=== PATIENT | female | born 1985 | race Hispanic/Latino ===

== ENCOUNTER 2018-05-13 15:28 | Inpatient (IN) | payer OTHER ==
[2018-05-13 15:28] VITALS: BMI 21.6
[2018-05-13] MEDS ORDERED: Morphine 4 MG/ML VIAL IV STA (17:05)
--- NOTE | 2018-05-13 17:08 | ED PDOC ---
Arrival/HPI - General Historian: Patient - History of Present Illness Narrative History of Present Illness (Text): 05/13/18 18:18 Pt is a 32 y/o female with hx of Brain Ca (in remission), Seizure D/O, Depression (6+) episodes of vomiting (NBNB).ssion, Anxiety, presenting to ED w ith complaints that she woke up this morning and had a headache associated with m She has also been experiencing a "loss for words". States that this type of episode has occured on multiple occasions in the past but usually lasts <1lhr. She cannot elaborate on whether it has been worked up. She denies any recent head trauma, recent illness (cough/fevers), sick contacts, motor defects, transient LOC, recent travel. She also denies auditory/visual hallucinations or ingestion of toxic substances/drugs. Pt's history is limited to her difficulty in formulating thoughts verbally. ROS: + tingling in right hand PMD: None Psychiatrist: Cannot remember name PMHX: Brain Ca (Astrocytoma Grade III, s/p resection, chemo and radiation 6 years ago, currently in remission), Seizure d/o, Depression, Anxiety Denies drug allergies Social: Works as a Psychiatrist Attending in [place] Next of Kin: , out of the country Father: Jose Jenkins [phone] 05/13/18 18:25 05/13/18 18:27 AMS, Expressive Aphasia, Code Stroke 05/13/18 18:41 05/13/18 19:26 <Cherelle Pineda - Last Filed: 05/13/18 19:30> <Kaya Davidson - Last Filed: 05/15/18 11:59> - General Chief Complaint: GI Problem Time Seen by Provider: 05/13/18 16:33 Past Medical History - Provider Review Nursing Documentation Reviewed: Yes - Travel History Have you recently traveled outside [place] w/in the past 3 mons?: No - Reproductive Currently : Unknown - Pulmonary Other/Comment: beth's disease - Endocrine/Metabolic Hx Hypothyroidism: Yes - Psychiatric Hx Substance Use: No - Surgical History Other/Comment: Left sided brain surgery- sec to astrocytoma - Anesthesia Hx Anesthesia: Yes Hx Anesthesia Reactions: No Hx Malignant Hyperthermia: No <Cherelle Pineda - Last Filed: 05/13/18 19:30> Family/Social History Family/Social History: No Known Family HX Smoking Status: Never Smoked Hx Alcohol Use: Yes Hx Substance Use: No <Cherelle Pineda - Last Filed: 05/13/18 19:30> Allergies/Home Meds <Nguyen Pinedam - Last Filed: 05/13/18 19:30> <Kaya Davidson - Last Filed: 05/15/18 11:59> Allergies/Adverse Reactions: Allergies Sulfa (Sulfonamide Antibiotics) Allergy (Verified 05/13/18 15:39) RASH Home Medications: Home Meds Medication Instructions Recorded Confirmed RX: Levothyroxine [Synthroid] 88 mcg PO DAILY 02/18/15 05/13/18 Dextroamphetamine/Amphetamine 20 mg PO BID 05/13/18 05/13/18 [Adderall Xr 10 mg Capsule] Escitalopram [Lexapro] 20 mg PO DAILY 05/13/18 05/13/18 Lamotrigine [Lamictal] 200 mg PO Q12 05/13/18 05/14/18 RX: Aspirin [Ecotrin] 81 mg PO MWF 05/13/18 05/13/18 Physical Exam - Physical Exam Physical Exam Limitations: Other (expressive aphasia) Vital Signs Temp Pulse Resp BP Pulse Ox 05/13/18 15:39 98 F 84 20 120/74 99 Finger Stick Blood Glucose: 107 - Systems Exam Head: Present: Atraumatic, Normocephalic Pupils: Present: PERRL. No: Sluggish, Pinpoint Extroacular Muscles: Present: EOMI. No: Gaze Palsy Mouth: Present: Moist Mucous Membranes Neck: Present: Normal Range of Motion Respiratory/Chest: Present: Clear to Auscultation. No: Respiratory Distress, Wheezes, Rales Cardiovascular: Present: Regular Rate and Rhythm Abdomen: Present: Normal Bowel Sounds. No: Tenderness, Distention Upper Extremity: Present: Normal Inspection Lower Extremity: Present: Normal Inspection Neurological: Present: GCS=15, CN II-XII Intact, Motor Func Grossly Intact, Normal Sensory Function, Normal Cerebellar Funct, Gait Normal. No: Speech Norm al (pauses intermittently in search for words) Skin: Present: Normal Color Psychiatric: Present: Alert, Oriented x 3, Normal Insight. No: Normal Conc entration <Cherelle Pineda - Last Filed: 05/13/18 19:30> Vital Signs Temp Pulse Resp BP Pulse Ox 05/13/18 17:30 98 F 75 14 112/73 99 05/13/18 15:39 98 F 84 20 120/74 99 <StuartKaya F - Last Filed: 05/15/18 11:59> Medical Decision Making - RAD Interpretation Radiology Orders: 05/13/18 17:04 HEAD W/O (CODE STROKE) [CT] Stat CHEST PORTABLE [RAD] Stat - Medication Orders Current Medication Orders: Sodium Chloride (Sodium Chloride 0.9%) 1,000 mls @ 100 mls/hr IV .Q10H APOLLO Morphine Sulfate (Morphine) 2 mg IV STAT STA Stop: 05/13/18 17:06 Ondansetron HCl (Zofran Inj) 4 mg IV STAT STA Stop: 05/13/18 17:06 <Cherelle Pineda - Last Filed: 05/13/18 19:30> - Critical Care Critical Care Minutes: 45 minutes - Lab Interpretations Lab Results: PT 12.8 Seconds (9.8-13.1) 05/13/18 17:05 INR 1.1 05/13/18 17:05 APTT 30.9 Seconds (25.6-37.1) 05/13/18 17:05 Troponin I < 0.0120 ng/mL (0.00-0.120) 05/13/18 17:05 Total Bilirubin 0.9 mg/dl (0.2-1.3) 05/13/18 17:05 AST 31 U/L (14-36) 05/13/18 17:05 ALT 33 U/L (9-52) 05/13/18 17:05 Alkaline Phosphatase 65 U/L (38-126) 05/13/18 17:05 Total Protein 7.7 G/DL (6.3-8.2) 05/13/18 17:05 Albumin 4.6 g/dL (3.5-5.0) 05/13/18 17:05 Globulin 3.1 gm/dL (2.2-3.9) 05/13/18 17:05 Albumin/Globulin Ratio 1.5 (1.0-2.1) 05/13/18 17:05 - RAD Interpretation Radiology Orders: 05/13/18 17:04 HEAD W/O (CODE STROKE) [CT] Stat CHEST PORTABLE [RAD] Stat - Medication Orders Current Medication Orders: Sodium Chloride (Sodium Chloride 0.9%) 1,000 mls @ 100 mls/hr IV .Q10H APOLLO Last Admin: 05/13/18 17:39 Dose: 100 mls/hr eMAR Start Stop Document 05/13/18 17:39 [email or web address] (Rec: 05/13/18 17:45 [id number]) Intravenous Solution Start Date 05/13/18 Start Time 17:44 Discontinued Medications Morphine Sulfate (Morphine) 2 mg IV STAT STA Stop: 05/13/18 17:06 Last Admin: 05/13/18 17:45 Dose: Not Given Non-Admin Reason: Patient Refused Ondansetron HCl (Zofran Inj) 4 mg IV STAT STA Stop: 05/13/18 17:06 Last Admin: 05/13/18 17:45 Dose: 4 mg eMAR Start Stop Document 05/13/18 17:45 [email or web address] (Rec: 05/13/18 17:45 [id number]) Intravenous Solution Start Date 05/13/18 Start Time 17:45 End Date 05/13/18 End time 17:47 Total Infusion Time 2 <Kaya Davidson F - Last Filed: 05/15/18 11:59> Disposition/Present on Arrival - Present on Arrival Any Indicators Present on Arrival: No History of DVT/PE: No - Disposition Have Diagnosis and Disposition been Completed?: Yes Disposition Time: 19:00 Patient Plan: ICU <Cherelle Pineda - Last Filed: 05/13/18 19:30> <Kaya Davidson - Last Filed: 05/15/18 11:59> - Disposition Diagnosis: Expressive aphasia Disposition: HOSPITALIZED Condition: STABLE Medical Decision Making Medical Decision Makin:[address] Sanon, recommends Keppra 1 g IV, MRI with contrast and admission to ICU. <Kaya Davidson - Last Filed: 05/15/18 11:59> NIHSS Stroke Scale - Date/Time Evaluation Performed When Was NIHSS Performed: Code Stroke - How Severe is the Stroke Level of Consciousness: 0=Alert LOC to Questions: 0=Both comments correct LOC to commands: 0=Obeys both correctly Best Gaze: 0=Normal Visual: 0=No visual loss Facial: 0=Normal Motor Arm - Left: 0=No drift Motor Arm - Right: 0=No drift Motor Leg - Left: 0=No drift Motor Leg - Right: 0=No drift Limb Ataxia: 0=Absent Sensory: 0=Normal Best Language: 1=Mild to moderate aphasia Dysarthia: 0=Normal articulation Extinction & Inattention (Neglect): 0=Normal, no object Score: 1 <Kaya Davidson F - Last Filed: 05/15/18 11:59>
[2018-05-13 17:29] LABS: INR 1.1; PROTHROMBIN TIME 12.8 Seconds (9.8-13.1)
--- NOTE | 2018-05-13 17:30 | CT ---
Date of service: 05/13/2018 PROCEDURE: CT HEAD WITHOUT CONTRAST. HISTORY: code stroke. Dizziness COMPARISON: None available. TECHNIQUE: Axial computed tomography images were obtained through the head/brain without intravenous contrast. Supplemental Coronal and Sagittal projections created and reviewed. Radiation dose: Total exam DLP = 952.01 mGy-cm. This CT exam was performed using one or more of the following dose reduction techniques: Automated exposure control, adjustment of the mA and/or kV according to patient size, and/or use of iterative reconstruction technique. FINDINGS: HEMORRHAGE: Focal area of encephalomalacia/cystic region adjacent to the craniotomy findings high left frontal region. The area of interest measures 1.7 x 2.3 cm. Mean Hounsfield unit values 8.9 approximate CSF values. BRAIN: No mass effect or edema. No atrophy or chronic microvascular ischemic changes. VENTRICLES: Unremarkable. No hydrocephalus. CALVARIUM: Post craniotomy changes high left frontal region. PARANASAL SINUSES: Unremarkable as visualized. No significant inflammatory changes. MASTOID AIR CELLS: Unremarkable as visualized. No inflammatory changes. OTHER FINDINGS: None. IMPRESSION: Postoperative changes right frontal region. This consists encephalomalacia region/cystic focus adjacent to left frontal craniotomy site. Code stroke protocol: Study completed 17:09 Radiologist notified 17:16 Results conveyed verbally at 17:23 Interpretation finalized and available for review 17:25.
[2018-05-13 17:32] LABS: PARTIAL THROMBOPLASTIN TIME 30.9 Seconds (25.6-37.1)
[2018-05-13 17:37] LABS: ALB/GLOB RATIO 1.5 (1.0-2.1); ALBUMIN 4.6 g/dL (3.5-5.0); ALT/SGPT 33 U/L (9-52); AST/SGOT 31 U/L (14-36); BLOOD UREA NITROGEN 22 mg/dl (7-17); CALCIUM 9.9 mg/dL (8.4-10.2); GFR NON-AFRICAN AMERICAN > 60; HDL CHOLESTEROL 67 MG/DL (30-70)
[2018-05-13] MEDS: Sodium Chloride 0.9% 1,000 ML IV SCH (17:39)
[2018-05-13 17:44] LABS: BASO % 0.2 % (0.0-2.0); HEMOGLOBIN 12.4 g/dL (12.0-16.0); LYMPH # 0.6 K/uL (1.0-4.3); LYMPH % 6.7 % (20.0-40.0); MEAN CELL VOLUME 86.8 fl (81.0-99.0); MEAN CORPUSCULAR HEMOGLOBIN 28.1 pg (27.0-31.0); MEAN CORPUSCULAR HGB CONC 32.4 g/dL (33.0-37.0); MEAN PLATELET VOLUME 9.8 fl (7.2-11.7); MONO # 0.3 K/uL (0.0-0.8); MONO % 3.8 % (0.0-10.0); NEUT % 89.3 % (50.0-75.0); PLATELET COUNT 256 K/uL (130-400); RBC 4.41 Mil/uL (3.80-5.20); RED CELL DISTRIBUTION WIDTH 12.9 % (11.5-14.5)
[2018-05-13 17:47] LABS: LDL CHOLESTEROL 95 mg/dL (0-129)
[2018-05-13] MEDS ORDERED: levETIRAcetam 1,000 MG in Sodium Chloride 0.9% 100 ML IVPB STA (17:53)
[2018-05-13] MEDS ORDERED: Gadodiamide 287 MG/ML VIAL (15ML) IV ONE (18:07)
--- NOTE | 2018-05-13 18:26 | RAD ---
Date of service: 05/13/2018 HISTORY: Code Stroke COMPARISON: No prior. FINDINGS: LUNGS: No active pulmonary disease. PLEURA: No significant pleural effusion identified, no pneumothorax apparent. CARDIOVASCULAR: No atherosclerotic calcification present Normal. OSSEOUS STRUCTURES: No significant abnormalities. VISUALIZED UPPER ABDOMEN: Normal. OTHER FINDINGS: None. IMPRESSION: No active disease.
--- NOTE | 2018-05-13 18:35 | CP.CCUPN ---
CCU Subjective - Physician Review Subjective (Free Text): 05/13/18 The Patient was seen and examined at the bedside in the Emergency department, Medical records reviewed, and management issues were discussed and formulated with the house staff. Patient is a 82 years old female with past medical history of brain cancer (currently in remission), seizure disorder, depression and anxiety Who presented to emergency room with complaint of that she woke up in the morning with Bilateral, frontal, severe headache and trouble finding the words Patient is stated that this type of symptom has occurred in the past but usually lasts less than 1 hour + tingling in right hand She denies any fever, chills, new focal weakness, sensory deficit, loss of conscious or seizure disorders In the emergency room code stroke was called Underwent head CT scan which was negative for acute bleed mass edema or acute stroke she is currently being evaluated in the emergency room and is scheduled to have an MRI of the brain Upon my evaluation in the emergency room she is alert awake oriented x3 no focal neurological deficits on exam but she has expressive aphasia difficulty findings words and formulating thought verbally Neurology on-call was consulted She received Morphine Sulfate (Morphine) 2 mg IV STAT and Ondansetron HCl (Zofran Inj) 4 mg IV STAT STA Patient is hemodynamically stable and getting admitted to the intensive care unit for frequent neurological check PMHX: As above plus Brain Ca (Astrocytoma Grade III, s/p resection, chemo and radiation 6 years ago, currently in remission) CCU Objective - Vital Signs / Intake & Output Vital Signs (Last 4 hours): Vital Signs Temp Pulse Resp BP Pulse Ox 05/13/18 17:30 98 F 75 14 112/73 99 05/13/18 15:39 98 F 84 20 120/74 99 Intake and Output (Last 8hrs): Intake & Output 05/13/18 05/13/18 05/13/18 06:59 14:59 22:59 Weight 135 lb - Physical Exam Head: Positive for: Atraumatic, Normocephalic Pupils: Positive for: PERRL Extroacular Muscles: Positive for: EOMI Conjunctiva: Positive for: Normal Ears: Positive for: Normal Mouth: Positive for: Moist Mucous Membranes Pharnyx: Positive for: Normal. Negative for: ERYTHEMA Nose (Internal): Positive for: Normal Inspection Neck: Positive for: Normal Range of Motion, Trachea Midline. Negative for: Meningeal Signs, MIDLINE TENDERNESS, Paraspinal Tenderness, JVD, Lymphadenopathy, Bruit, Other Respiratory/Chest: Positive for: Clear to Auscultation, Good Air Exchange. N egative for: Respiratory Distress, Accessory Muscle Use, Rales, Retracting, Rhonchi Cardiovascular: Positive for: Regular Rate and Rhythm, Normal S1, S2, Peripheal Pulses Present. Negative for: Murmurs, Tachycardic, Bradycardic Abdomen: Positive for: Normal Bowel Sounds. Negative for: Tenderness, Distention, Peritoneal Signs Back: Positive for: Normal Inspection. Negative for: CVA Tenderness, Midline Tenderness Psychiatric: Positive for: Alert, Oriented x 3 - Medications Active Medications: Active Medications Generic Name Dose Route Start Last Admin Trade Name Freq PRN Reason Stop Dose Admin Sodium Chloride 1,000 mls @ 100 mls/hr 05/13/18 17:15 05/13/18 17:39 Sodium Chloride 0.9% IV 100 mls/hr .Q10H APOLLO Administration - Patient Studies Lab Studies: Lab Studies 05/13/18 05/13/18 05/13/18 Range/Units 17:05 17:05 17:05 WBC (4.8-10.8) K/uL RBC (3.80-5.20) Mil/uL Hgb (12.0-16.0) g/dL Hct (34.0-47.0) % MCV (81.0-99.0) fl MCH (27.0-31.0) pg MCHC (33.0-37.0) g/dL RDW (11.5-14.5) % Plt Count (130-400) K/uL MPV (7.2-11.7) fl Neut % (Auto) (50.0-75.0) % Lymph % (Auto) (20.0-40.0) % [place] % (Auto) (0.0-10.0) % Eos % (Auto) (0.0-4.0) % Baso % (Auto) (0.0-2.0) % Neut # (Auto) (1.8-7.0) K/uL Lymph # (Auto) (1.0-4.3) K/uL [place] # (Auto) (0.0-0.8) K/uL Eos # (Auto) (0.0-0.7) K/uL Baso # (Auto) (0.0-0.2) K/uL PT 12.8 (9.8-13.1) Seconds INR 1.1 APTT 30.9 (25.6-37.1) Seconds Sodium (132-148) mmol/l Potassium (3.6-5.0) MMOL/L Chloride (98-107) mmol/L Carbon Dioxide (22-30) mmol/L Anion Gap (10-20) BUN (7-17) mg/dl Creatinine (0.7-1.2) mg/dl Est GFR ( Amer) Est GFR (Non-Af Amer) POC Glucose (mg/dL) (65-110) mg/dL Random Glucose (65-105) mg/dL Calcium (8.4-10.2) mg/dL Total Bilirubin (0.2-1.3) mg/dl AST (14-36) U/L ALT (9-52) U/L Alkaline Phosphatase (38-126) U/L Troponin I (0.00-0.120) ng/mL Total Protein (6.3-8.2) G/DL Albumin (3.5-5.0) g/dL Globulin (2.2-3.9) gm/dL Albumin/Globulin Ratio (1.0-2.1) Triglycerides (0-149) mg/DL Cholesterol (0-199) mg/dL LDL Cholesterol Direct (0-129) mg/dL HDL Cholesterol (30-70) MG/DL Beta HCG, Quant < 2.39 mIU/mL Blood Type A POSITIVE Antibody Screen Negative BBK History Checked No verified bt 05/13/18 05/13/18 05/13/18 Range/Units 17:05 17:05 17:04 WBC 9.0 (4.8-10.8) K/uL RBC 4.41 (3.80-5.20) Mil/uL Hgb 12.4 (12.0-16.0) g/dL Hct 38.2 (34.0-47.0) % MCV 86.8 (81.0-99.0) fl MCH 28.1 (27.0-31.0) pg MCHC 32.4 L (33.0-37.0) g/dL RDW 12.9 (11.5-14.5) % Plt Count 256 (130-400) K/uL MPV 9.8 (7.2-11.7) fl Neut % (Auto) 89.3 H (50.0-75.0) % Lymph % (Auto) 6.7 L (20.0-40.0) % [place] % (Auto) 3.8 (0.0-10.0) % Eos % (Auto) 0.0 (0.0-4.0) % Baso % (Auto) 0.2 (0.0-2.0) % Neut # (Auto) 8.0 H (1.8-7.0) K/uL Lymph # (Auto) 0.6 L (1.0-4.3) K/uL [place] # (Auto) 0.3 (0.0-0.8) K/uL Eos # (Auto) 0.0 (0.0-0.7) K/uL Baso # (Auto) 0.0 (0.0-0.2) K/uL PT (9.8-13.1) Seconds INR APTT (25.6-37.1) Seconds Sodium 138 (132-148) mmol/l Potassium 3.9 (3.6-5.0) MMOL/L Chloride 98 (98-107) mmol/L Carbon Dioxide 26 (22-30) mmol/L Anion Gap 18 (10-20) BUN 22 H (7-17) mg/dl Creatinine 0.5 L (0.7-1.2) mg/dl Est GFR ( Amer) > 60 Est GFR (Non-Af Amer) > 60 POC Glucose (mg/dL) 107 (65-110) mg/dL Random Glucose 102 (65-105) mg/dL Calcium 9.9 (8.4-10.2) mg/dL Total Bilirubin 0.9 (0.2-1.3) mg/dl AST 31 (14-36) U/L ALT 33 (9-52) U/L Alkaline Phosphatase 65 (38-126) U/L Troponin I < 0.0120 (0.00-0.120) ng/mL Total Protein 7.7 (6.3-8.2) G/DL Albumin 4.6 (3.5-5.0) g/dL Globulin 3.1 (2.2-3.9) gm/dL Albumin/Globulin Ratio 1.5 (1.0-2.1) Triglycerides 35 (0-149) mg/DL Cholesterol 192 (0-199) mg/dL LDL Cholesterol Direct 95 (0-129) mg/dL HDL Cholesterol 67 (30-70) MG/DL Beta HCG, Quant mIU/mL Blood Type Antibody Screen BBK History Checked Laboratory Results - last 24 hr 05/13/18 05/13/18 05/13/18 17:04 17:05 17:05 WBC 9.0 RBC 4.41 Hgb 12.4 Hct 38.2 MCV 86.8 MCH 28.1 MCHC 32.4 L RDW 12.9 Plt Count 256 MPV 9.8 Neut % (Auto) 89.3 H Lymph % (Auto) 6.7 L [place] % (Auto) 3.8 Eos % (Auto) 0.0 Baso % (Auto) 0.2 Neut # (Auto) 8.0 H Lymph # (Auto) 0.6 L [place] # (Auto) 0.3 Eos # (Auto) 0.0 Baso # (Auto) 0.0 PT INR APTT Sodium 138 Potassium 3.9 Chloride 98 Carbon Dioxide 26 Anion Gap 18 BUN 22 H Creatinine 0.5 L Est GFR ( Amer) > 60 Est GFR (Non-Af Amer) > 60 POC Glucose (mg/dL) 107 Random Glucose 102 Calcium 9.9 Total Bilirubin 0.9 AST 31 ALT 33 Alkaline Phosphatase 65 Troponin I < 0.0120 Total Protein 7.7 Albumin 4.6 Globulin 3.1 Albumin/Globulin Ratio 1.5 Triglycerides 35 Cholesterol 192 LDL Cholesterol Direct 95 HDL Cholesterol 67 Beta HCG, Quant Blood Type Antibody Screen BBK History Checked 05/13/18 05/13/18 05/13/18 17:05 17:05 17:05 WBC RBC Hgb Hct MCV MCH MCHC RDW Plt Count MPV Neut % (Auto) Lymph % (Auto) [place] % (Auto) Eos % (Auto) Baso % (Auto) Neut # (Auto) Lymph # (Auto) [place] # (Auto) Eos # (Auto) Baso # (Auto) PT 12.8 INR 1.1 APTT 30.9 Sodium Potassium Chloride Carbon Dioxide Anion Gap BUN Creatinine Est GFR ( Amer) Est GFR (Non-Af Amer) POC Glucose (mg/dL) Random Glucose Calcium Total Bilirubin AST ALT Alkaline Phosphatase Troponin I Total Protein Albumin Globulin Albumin/Globulin Ratio Triglycerides Cholesterol LDL Cholesterol Direct HDL Cholesterol Beta HCG, Quant < 2.39 Blood Type A POSITIVE Antibody Screen Negative BBK History Checked No verified bt Radiology Impressions: Radiology Impressions Chest X-Ray 05/13/18 17:04 IMPRESSION: No active disease. Head CT 05/13/18 17:04 IMPRESSION: Postoperative changes right frontal region. This consists encephalomalacia region/cystic focus adjacent to left frontal craniotomy site. Code stroke protocol: Study completed 17:09 Radiologist notified 17:16 Results conveyed verbally at 17:23 Interpretation finalized and available for review 17:25. EKG/Cardiology Studies: Cardiology / EKG Studies 05/13/18 17:04 ELECTROCARDIOGRAM Stat Comment: Mode Of Transportation: Reason For Exam: Code stroke Fingerstick Blood Sugar Results: 107 Review of Systems - Review of Systems Systems not reviewed;Unavailable: Acuity of Condition - Constitutional Constitutional: absent: Fever, Chills, Sweats - Cardiovascular Cardiovascular: absent: Acrocyanosis, Chest Pain, Chest Pain at Rest, Chest Pain with Activity, Claudication, Diaphoresis, Dyspnea - Neurological Neurological: Abnormal Speech, Confusion, Dizziness, Numbness, Lack of Coordination, Paresthesias. absent: Abnormal Movements, Behavioral Changes, Convulsions, Disequilibrium, Focal Weakness Critical Care Progress Note - Extremities/Vascular Does the Patient have a Central Venous Catheter?: No Does the Patient need a Central Venous Catheter?: No Does the Patient have a Chau Catheter?: No Does the Patient need a Chau Catheter?: No Assessment/Plan (1) Acute ischemic stroke Current Visit: Yes Status: Acute Priority: High (2) Expressive aphasia Current Visit: Yes Status: Ruled-out Priority: High - Assessment and Plan (Free Text) Assessment: Admit the patient to the intensive care unit for frequent neuro check neurology consulted in the emergency room possible need for permissive hypertension for now NPO Speech and swallow evaluation PT OT evaluation patient might require MICHELLE on discharge MRI of the brain acute stroke sequences ekg monitor to assess for A. fib though low suspicion for embolus at this time Check urine toxicology, hemoglobin A1c, lipid panel Start statins Consider EEG
[2018-05-13 19:45] LABS: ANISOCYTOSIS SLIGHT; BANDS 2 % (0-2); LYMPHOCYTE 8 % (20-50); MONOCYTE 5 % (0-10); NEUTROPHIL 85 % (42-75); PLATELET ESTIMATE NORMAL (NORMAL); TOTAL CELLS COUNTED 100
[2018-05-13 19:46] LABS: HYPOCHROMIC SLIGHT
[2018-05-14 00:14] LABS: SQUAMOUS EPITHIAL 5 /hpf (0-5); URINE BACTERIA RARE (<OCC); URINE BILIRUBIN NEGATIVE (NEGATIVE); URINE BLOOD MODERATE (NEGATIVE); URINE CLARITY CLOUDY (Clear); URINE COLOR YELLOW (YELLOW); URINE GLUCOSE (UA) NEG (NEGATIVE); URINE LEUKOCYTE ESTERASE NEG Leu/uL (Negative); URINE PROTEIN 30 mg/dL (NEGATIVE); URINE UROBILINOGEN 0.2-1.0 mg/dL (0.2-1.0)
[2018-05-14 00:18] LABS: HCG,QUALITATIVE URINE NEGATIVE (NEGATIVE)
[2018-05-14 00:23] LABS: BARBITURATES, UR NEGATIVE (NEGATIVE); BENZODIAZEPINES, UR NEGATIVE (NEGATIVE); OPIATES, UR NEGATIVE (NEGATIVE); PHENCYCLIDINE, UR NEGATIVE (NEGATIVE)
[2018-05-14] MEDS: Sodium Chloride 0.9% 1,000 ML IV SCH (03:30)
[2018-05-14 05:20] LABS: HEMOGLOBIN 11.3 g/dL (12.0-16.0); MEAN CELL VOLUME 86.9 fl (81.0-99.0); MEAN CORPUSCULAR HEMOGLOBIN 28.4 pg (27.0-31.0); MEAN CORPUSCULAR HGB CONC 32.6 g/dL (33.0-37.0); RBC 3.97 Mil/uL (3.80-5.20); RED CELL DISTRIBUTION WIDTH 12.8 % (11.5-14.5)
[2018-05-14 05:32] LABS: BLOOD UREA NITROGEN 13 mg/dl (7-17); CALCIUM 8.9 mg/dL (8.4-10.2); GFR NON-AFRICAN AMERICAN > 60
[2018-05-14] MEDS ORDERED: Levothyroxine 88 MCG TAB PO SCH (06:30)
[2018-05-14] MEDS ORDERED: AMPHETAMINE PO SCH (09:00)
[2018-05-14] MEDS ORDERED: DEXTROAMPHETAMINE PO SCH (09:00)
--- NOTE | 2018-05-14 09:05 | CARD ---
APPROVED REPORT Date of service: 05/13/2018 EKG Measurement Heart [id number] <Conclusion> Normal sinus rhythm with sinus arrhythmia Normal ECG
--- NOTE | 2018-05-14 12:25 | MRI ---
Date of service: 05/13/2018 PROCEDURE: MRI BRAIN WITH AND WITHOUT CONTRAST HISTORY: Expressive aphasia COMPARISON: Noncontrast head CT 05/13/2018. TECHNIQUE: Multiplanar, multisequence MR images of the brain were obtained with and without intravenous contrast enhancement (Omniscan 13 cc). FINDINGS: HEMORRHAGE: None DWI: Trace hemosiderin identified at the medial left temporal lobe at the posterior extent of the sylvian fissure of uncertain origin. This may be posttraumatic or postoperative although cavernous angioma is a possibility here. BRAIN PARENCHYMA: Postoperative changes are identified at the left frontal vertex status post left parietal craniotomy with smooth peripheral margins associated and no enhancement. Limited white-matter changes are seen related to the periphery of this postoperative site as well as in the periventricular white matter, left greater than right bilateral centrum semiovale white-matter is also somewhat abnormal though minimally. No mass effect. Posterior fossa contents appear unremarkable as imaged. A small dilated perivascular space is seen at the posterior margins of the left basal ganglia lateral to left thalamus. ENHANCEMENT: No abnormal intracranial enhancement. VENTRICLES: Unremarkable. No hydrocephalus. CRANIUM: Unremarkable. ORBITS: Grossly unremarkable. PARANASAL SINUSES/MASTOIDS: Clear VASCULAR SYSTEM: Skull base flow voids intact. OTHER FINDINGS: None . IMPRESSION: Postoperative changes in the left frontal vertex status post left parietal craniotomy. No abnormal intracranial enhancement appreciated. Nonspecific white-matter signal changes seen in the periventricular white matter bilateral centrum semiovale regions. Etiology is nonspecific. This could reflect post radiation change but clinical correlation is advised.
[2018-05-14] MEDS ORDERED: Sodium Chloride 0.9% 50 ML IV ONE (12:42)
[2018-05-14] MEDS ORDERED: Iodixanol 320 MG/ML 100 ML BOTTLE IV ONE (12:42)
--- NOTE | 2018-05-14 14:10 | CT ---
Date of service: 05/14/2018 PROCEDURE: CT Angiography of the Brain and Neck. HISTORY: angioma COMPARISON: None available. TECHNIQUE: CT angiography of the head and neck was performed following intravenous contrast administration. Coronal and sagittal maximum intensity projection reformatted images were generated. Contrast Dose: Visipaque 320, 100 cc Radiation dose: Total exam DLP = 414.53 mGy-cm. This CT exam was performed using one or more of the following dose reduction techniques: Automated exposure control, adjustment of the mA and/or kV according to patient size, and/or use of iterative reconstruction technique. FINDINGS: INTERNAL CEREBRAL ARTERIES: Unremarkable. The skull base, petrous, cavernous and supraclinoid segments are bilaterally widely patent. ANTERIOR CEREBRAL ARTERIES: Unremarkable. A1 and A2 segments are widely patent. Smaller distal branches unremarkable, as visualized. MIDDLE CEREBRAL ARTERIES: Unremarkable. M1 and M2 segments are widely patent. Perisylvian branches grossly symmetric. POSTERIOR CIRCULATION: Basilar Artery: Unremarkable. Distal Vertebral Arteries: Codominant vertebrobasilar circulation. Posterior Cerebral Arteries: Unremarkable. Posterior Inferior Cerebellar Arteries: Unremarkable. NECK CTA: Common Carotid arteries: The bilateral common carotid appear widely patent from their origins to their bifurcations with no significant stenosis appreciated. No evidence to suggest common carotid artery dissection. Internal Carotid arteries: No significant stenosis is appreciated throughout the cervical internal carotid artery segments bilaterally and there is no evidence of dissection either. External Carotid arteries: Appear unremarkable bilaterally. Vertebral arteries: The bilateral vertebral arteries appear normal in caliber from their origins to their distal cervical segments. No significant stenosis or definite pattern of dissection. ANEURYSM/ VASCULAR MALFORMATIONS: None. OTHER FINDINGS: None. IMPRESSION: Unremarkable CT Angiography of the Brain and Neck. No intracranial aneurysm or arteriovascular malformation appreciable. No, although enhancement is usually seen within cavernous angiomata, occult AVMs such as cavernous angiomas may not significantly enhance. Postop changes are identified left parietal bone and left frontal lobe.
[2018-05-14 17:28] VITALS: PULSE 98; RESP 14; TEMP 97.5; O2SAT 98
--- NOTE | 2018-05-14 17:42 | CP.PCM.HP ---
Past Patient History - Past Medical History & Family History Past Medical History?: Yes - Past Social History Smoking Status: Never Smoked - CARDIAC Hx Cardiac Disorders: No - PULMONARY Hx Respiratory Disorders: No - NEUROLOGICAL Hx Neurological Disorder: Yes - HEENT Hx HEENT Problems: No - RENAL Hx Chronic Kidney Disease: No - ENDOCRINE/METABOLIC Hx Endocrine Disorders: Yes Hx Hypothyroidism: Yes Other/Comment: Sunshine disorder - HEMATOLOGICAL/ONCOLOGICAL Hx Cancer: Yes (brain) - INTEGUMENTARY Hx Dermatological Problems: No - MUSCULOSKELETAL/RHEUMATOLOGICAL Hx Musculoskeletal Disorders: No Hx Falls: No - GASTROINTESTINAL Hx Gastrointestinal Disorders: Yes Hx Vomiting: Yes - GENITOURINARY/GYNECOLOGICAL Hx Genitourinary Disorders: No - PSYCHIATRIC Hx Psychophysiologic Disorder: Yes - SURGICAL HISTORY Hx Surgeries: Yes Hx Tonsillectomy: Yes Other/Comment: Left sided brain surgery- sec to astrocytoma - ANESTHESIA Hx Anesthesia: Yes Hx Anesthesia Reactions: No Hx Malignant Hyperthermia: No Meds Allergies/Adverse Reactions: Allergies Allergy/AdvReac Type Severity Reaction Status Date / Time Sulfa (Sulfonamide Allergy RASH Verified 05/13/18 15:39 Antibiotics) Results - Vital Signs Recent Vital Signs: Last Vital Signs Temp 97.5 F L 05/14/18 14:00 Pulse 98 H 05/14/18 14:00 Resp 14 05/14/18 14:00 BP 93/59 L 05/14/18 12:00 Pulse Ox 98 05/14/18 14:00 - Labs Result Diagrams: 05/14/18 04:25 05/14/18 04:25 Labs: Laboratory Results - last 24 hr 05/13/18 05/13/18 05/13/18 17:05 17:05 17:05 WBC 9.0 RBC 4.41 Hgb 12.4 Hct 38.2 MCV 86.8 MCH 28.1 MCHC 32.4 L RDW 12.9 Plt Count 256 MPV 9.8 Neut % (Auto) 89.3 H Lymph % (Auto) 6.7 L [place] % (Auto) 3.8 Eos % (Auto) 0.0 Baso % (Auto) 0.2 Neut # (Auto) 8.0 H Lymph # (Auto) 0.6 L [place] # (Auto) 0.3 Eos # (Auto) 0.0 Baso # (Auto) 0.0 Neutrophils % (Manual) 85 H Band Neutrophils % 2 Lymphocytes % (Manual) 8 L Monocytes % (Manual) 5 Platelet Estimate Normal Hypochromasia (manual) Slight Anisocytosis (manual) Slight Sodium Potassium Chloride Carbon Dioxide Anion Gap BUN Creatinine Est GFR ( Amer) Est GFR (Non-Af Amer) Random Glucose Hemoglobin A1c 5.8 Calcium Troponin I < 0.0120 LDL Cholesterol Direct 95 Beta HCG, Quant Urine Color Urine Clarity Urine pH Ur Specific [place] Urine Protein Urine Glucose (UA) Urine Ketones Urine Blood Urine Nitrate Urine Bilirubin Urine Urobilinogen Ur Leukocyte Esterase Urine RBC (Auto) Urine Microscopic WBC Ur Squamous Epith Cells Urine Bacteria Urine HCG, Qual Urine Opiates Screen Urine Methadone Screen Ur Barbiturates Screen Ur Phencyclidine Scrn Ur Amphetamines Screen U Benzodiazepines Scrn U Oth Cocaine Metabols U Cannabinoids Screen Blood Type Antibody Screen 05/13/18 05/13/18 05/13/18 17:05 17:05 23:30 WBC RBC Hgb Hct MCV MCH MCHC RDW Plt Count MPV Neut % (Auto) Lymph % (Auto) [place] % (Auto) Eos % (Auto) Baso % (Auto) Neut # (Auto) Lymph # (Auto) [place] # (Auto) Eos # (Auto) Baso # (Auto) Neutrophils % (Manual) Band Neutrophils % Lymphocytes % (Manual) Monocytes % (Manual) Platelet Estimate Hypochromasia (manual) Anisocytosis (manual) Sodium Potassium Chloride Carbon Dioxide Anion Gap BUN Creatinine Est GFR ( Amer) Est GFR (Non-Af Amer) Random Glucose Hemoglobin A1c Calcium Troponin I LDL Cholesterol Direct Beta HCG, Quant < 2.39 Urine Color Yellow Urine Clarity Cloudy Urine pH 8.0 Ur Specific [place] 1.023 Urine Protein 30 Urine Glucose (UA) Neg Urine Ketones 80 Urine Blood Moderate Urine Nitrate Negative Urine Bilirubin Negative Urine Urobilinogen 0.2-1.0 Ur Leukocyte Esterase Neg Urine RBC (Auto) 29 H Urine Microscopic WBC 1 Ur Squamous Epith Cells 5 Urine Bacteria Rare Urine HCG, Qual Negative Urine Opiates Screen Urine Methadone Screen Ur Barbiturates Screen Ur Phencyclidine Scrn Ur Amphetamines Screen U Benzodiazepines Scrn U Oth Cocaine Metabols U Cannabinoids Screen Blood Type A POSITIVE Antibody Screen Negative 05/13/18 05/14/18 05/14/18 23:30 04:25 04:25 WBC 10.0 RBC 3.97 Hgb 11.3 L Hct 34.5 MCV 86.9 MCH 28.4 MCHC 32.6 L RDW 12.8 Plt Count 233 MPV Neut % (Auto) Lymph % (Auto) [place] % (Auto) Eos % (Auto) Baso % (Auto) Neut # (Auto) Lymph # (Auto) [place] # (Auto) Eos # (Auto) Baso # (Auto) Neutrophils % (Manual) Band Neutrophils % Lymphocytes % (Manual) Monocytes % (Manual) Platelet Estimate Hypochromasia (manual) Anisocytosis (manual) Sodium 136 Potassium 3.7 Chloride 100 Carbon Dioxide 24 Anion Gap 16 BUN 13 Creatinine 0.5 L Est GFR ( Amer) > 60 Est GFR (Non-Af Amer) > 60 Random Glucose 88 Hemoglobin A1c Calcium 8.9 Troponin I LDL Cholesterol Direct Beta HCG, Quant Urine Color Urine Clarity Urine pH Ur Specific [place] Urine Protein Urine Glucose (UA) Urine Ketones Urine Blood Urine Nitrate Urine Bilirubin Urine Urobilinogen Ur Leukocyte Esterase Urine RBC (Auto) Urine Microscopic WBC Ur Squamous Epith Cells Urine Bacteria Urine HCG, Qual Urine Opiates Screen Negative Urine Methadone Screen Negative Ur Barbiturates Screen Negative Ur Phencyclidine Scrn Negative Ur Amphetamines Screen Negative U Benzodiazepines Scrn Negative U Oth Cocaine Metabols Negative U Cannabinoids Screen Positive H Blood Type Antibody Screen
[2018-05-14 17:49] VITALS: BP 104/54
[2018-05-14] MEDS ORDERED: levETIRAcetam 500 MG in Sodium Chloride 0.9% 100 ML IVPB SCH (21:00)
--- NOTE | 2018-05-15 01:19 | PN ---
DATE: 05/14/2018 CRITICAL CARE PROGRESS NOTE LOCATION: The patient is in ICU, bed 421. SUBJECTIVE: The patient is seen and evaluated at the bedside. Past medical, surgical and social history reviewed. A 32-year-old female with a history of brain CA, astrocytoma grade 3, status post resection, chemotherapy and radiation treatment 6 years ago, currently in remission with seizure disorder, on Keppra, and anxiety and depression. The patient was admitted through emergency room with complaining of headache associated with loss of voice/dysarthria, admitted, noted to have a tingling of her right hand. Initial head CT showed postoperative changes of right frontal region with encephalomalacia and regional cystic focus adjacent to left frontal craniotomy site. MRI of the brain, postoperative changes in the left frontal vertex, status post left parietal craniotomy, no abnormal intracranial enhancement, no specific white matter signal changes in the periventricular white matter, bilateral centrum semiovale regions. The patient's head CT angiogram also shows no acute abnormality. PHYSICAL EXAMINATION: GENERAL: This morning alert, awake, follows commands appropriate. Able to comprehend and express but slight dysarthria persists. No motor weakness. Able to swallow without aspiration, seen by Speech and Swallow. Recommended to upgrade food as tolerated. VITAL SIGNS: Temperature 97.3, heart rate 69 and regular, blood pressure 93/59, mean arterial pressure 70, respiratory rate 15, oxygen saturation 99% on room air. Intake 900, output not documented. Weight 138 pounds. HEAD, EYES, EARS, NOSE AND THROAT: Pupils reactive. Conjunctivae pink. Sclerae are white. NECK: Supple. Trachea central. Mild right facial droop. CHEST: Bilateral breath sounds, clear to auscultation. HEART: Rhythm regular. S1, S2 normal. ABDOMEN: Bowel sounds present. Soft. Liver and spleen not palpable. Bladder not distended. EXTREMITIES: No clubbing, cyanosis or edema. NEUROLOGIC: Oriented to name, place and time. No motor or sensory impairment. MEDICATIONS: Include levothyroxine 88 mcg daily, Lamictal 200 mg twice daily, Lexapro 20 mg p.o. daily, sodium chloride 1000 mL at 100 mL/hour. IMPRESSION: History of astrocytoma, in remission; history of seizure, stable without any seizure episodes since admission. CT head, MRI and CT angiogram head and neck show no new abnormality, remains clinically stable. PLAN: Continue current medications, can be discharged from ICU to regular floor. Malik Meraz MD
== END 2018-05-14 19:02 | disposition home or self-care (01) | DRG 71 ==
LOC: H.ER 15:28 → H.ERHOLD 18:39 → OBSVTOIN 18:39 → INTOOBSV 18:39 → H.ICU/CCU 20:50
PROVIDERS: ADMIT Family Medicine; ATTEND Family Medicine
DX: G93.89 Other specified disorders of brain (principal); R47.01 Aphasia; G40.909 Epilepsy, unspecified, not intractable, without status epilepticus; Z85.841 Personal history of malignant neoplasm of brain; R47.1 Dysarthria and anarthria; F41.9 Anxiety disorder, unspecified; E06.3 Autoimmune thyroiditis; Z92.21 Personal history of antineoplastic chemotherapy; Z92.3 Personal history of irradiation; Z88.2 Allergy status to sulfonamides